=== PATIENT | female | born 1945 | race Caucasian/White ===

== ENCOUNTER 2018-05-08 05:52 | Emergency (ER) | payer OTHER ==
[2018-05-08 06:42] VITALS: BP 142/68; PULSE 76; TEMP 97.5; BMI 27.4
--- NOTE | 2018-05-08 07:15 | PDOC ---
History of Present Illness - General Chief Complaint: Vaginal Bleeding Stated Complaint: Vaginal bleeding Time Seen by Provider: 05/08/18 07:15 - History of Present Illness Initial Comments: 73 year old female with PMH of HTN, HLD, and hypothyroidism presenting with vaginal bleeding since 1 AM. Patient states that she went to the bathroom and felt pain when she urinated then noticed bleeding in the toilet and on the toilet paper. Describes the pain as a 5-7/10 burning sensation when she urinates. She has never had this before. She still has he uterus and ovaries. Denies any fevers, chills, flank pain, chest pain, or other symptoms. 05/08/18 07:30 Past History - Past Medical History Allergies/Adverse Reactions: Allergies Allergy/AdvReac Type Severity Reaction Status Date / Time No Known Allergies Allergy Verified 05/08/18 06:42 Home Medications: Ambulatory Orders Amlodipine Besylate [Norvasc -] 10 mg PO DAILY #7 tablet 09/05/13 Aspirin Coated [Ecotrin -] 81 mg PO DAILY 09/05/13 Labetalol HCl 100 mg PO BID #20 tablet 09/05/13 Levothyroxine [Synthroid -] 100 mcg PO DAILY 09/05/13 Quetiapine Fumarate [Seroquel] 25 mg PO HS 09/05/13 Simvastatin [Zocor] 20 mg PO HS 09/05/13 Cephalexin Monohydrate [Keflex -] 500 mg PO BID 7 Days #14 capsule 05/08/18 Omeprazole 20 mg PO DAILY 05/08/18 COPD: No HTN: Yes Hypercholesterolemia: Yes Thyroid Disease: Yes (hypo) - Suicide/Smoking/Psychosocial Hx Smoking History: Never smoked Have you smoked in the past 12 months: No Number of Cigarettes Smoked Daily: 10 If you are a former smoker, when did you quit?: 1 mth ago Information on smoking cessation initiated: No 'Breaking Loose' booklet given: 03/22/18 Hx Alcohol Use: No Drug/Substance Use Hx: No Substance Use Type: None Review of Systems - Review of Systems Constitutional: No: Chills, Diaphoresis, Fever, Loss of Appetite HEENTM: No: Eye Pain, Blurred Vision, Tearing Respiratory: No: Cough, Shortness of Breath, Stridor, Wheezing Cardiac (ROS): No: Edema, Irregular Heart Rate, Lightheadedness, Palpitations ABD/GI: No: Diarrhea, Nausea, Vomiting : Yes: Frequency, Hematuria, Pain, Urgency. No: Dysuria, Discharge, Flank Pain Musculoskeletal: No: Back Pain, Gout, Joint Pain, Joint Swelling Integumentary: No: Dryness, Erythema, Flushing, Lesions Neurological: No: Headache, Numbness, Paresthesia, Seizure Psychiatric: No: Anxiety, Frequent Crying, Stressors Hematologic/Lymphatic: No: Anemia, Blood Clots, Easy Bleeding *Physical Exam - Vital Signs Last Vital Signs Temp Pulse Resp BP Pulse Ox 97.5 F L 76 18 142/68 100 05/08/18 06:05 05/08/18 06:05 05/08/18 06:05 05/08/18 06:05 05/08/18 06:05 - Physical Exam General Appearance: Yes: Nourished, Appropriately Dressed. No: Apparent Distress HEENT: positive: EOMI, DONOVAN, Normal ENT Inspection, Normal Voice Neck: positive: Trachea midline, Normal Thyroid, Supple. negative: Tender, Rigid Respiratory/Chest: positive: Lungs Clear, Normal Breath Sounds. negative: Chest Tender, Respiratory Distress, Accessory Muscle Use Cardiovascular: positive: Regular Rhythm, Regular Rate Female Pelvic Exam: positive: normal external exam, cervical os closed. negative: lesions, vaginal bleeding, other (bleeding lesion in the ) Gastrointestinal/Abdominal: positive: Normal Bowel Sounds, Flat, Soft. negative : Tender Lymphatic: negative: Adenopathy, Tenderness Musculoskeletal: positive: Normal Inspection. negative: CVA Tenderness Extremity: positive: Normal Capillary Refill, Normal Inspection, Normal Range of Motion, Pelvis Stable. negative: Tender Integumentary: positive: Normal Color, Dry, Warm Neurologic: positive: Fully Oriented, Alert, Normal Mood/Affect, Normal Response , Motor Strength 5/5 Medical Decision Making - Medical Decision Making 73 year old with PMH of HTN, HLD, and hypothyroidism presenting with vaginal bleeding for the past 4 hours that we've determined to be urinary in origin concerning for hemorrhagic cystitis/ UTI with hematuria corroborated on UA with + leuk esterase and WBCs. This could represent a urinary neoplasm, however, but less likely given UA concerning for infection. Patient sent home with 500 BID of Keflex for 7 days and follow up/ return precautions. 05/08/18 08:11 *DC/Admit/Observation/Transfer Diagnosis at time of Disposition: UTI (urinary tract infection) Qualifiers: Urinary tract infection type: site unspecified Hematuria presence: with hematuria Qualified Code(s): N39.0 - Urinary tract infection, site not specified ; R31.9 - Hematuria, unspecified - Discharge Dispostion Disposition: HOME Condition at time of disposition: Improved - Referrals Referrals: Homer Sykes [Primary Care Provider] - - Patient Instructions Printed Discharge Instructions: DI for Urinary Tract Infection (UTI) Additional Instructions: Please stay well hydrated and please use your antibiotics twice a day for the next 7 days. Please follow up with Dr. Martinez this week. We will call you if your urinary cultures grow a bacteria that is not covered by your antibiotics. Please return to the ED if you do not notice small improvement in the next 2-3 days. Also return if you have any new or worsening symptoms. - Post Discharge Activity
[2018-05-08 07:24] LABS: URINE APPEARANCE CLEAR; URINE BILIRUBIN NEGATIVE (<2.0 mg/dL); URINE COLOR RED; URINE GLUCOSE (UA) 1+ (NEGATIVE); URINE KETONE NEGATIVE (NEGATIVE); URINE LEUK ESTERASE 1+ (NEGATIVE); URINE NITRITE NEGATIVE (NEGATIVE); URINE PROTEIN 2+ (NEGATIVE); URINE UROBILINOGEN NEGATIVE mg/dL (0.2-1.0)
[2018-05-08 07:30] LABS: EPI CELLS RARE /HPF (FEW); URINE BACTERIA RARE /hpf (NONE SEEN); URINE MUCUS RARE
--- NOTE | 2018-05-08 08:19 | PDOC ---
Attending Attestation - Resident Resident Name: Anaid Fleming - ED Attending Attestation I have performed the following: I have examined & evaluated the patient, The case was reviewed & discussed with the resident, I agree w/resident's findings & plan - HPI HPI: 05/08/18 08:17 73-year-old female with history of UTIs was in her usual state of normal health until around 4 AM, when she awoke with urinary urgency and noted post urinary discomfort and blood in the urine. Some constipation and pelvic discomfort, no other GI complaints, no fevers or chills or flank pain. Last treated for UTI successfully about 6 months ago with antibiotics. - Physicial Exam PE: 05/08/18 08:18 Afebrile, vital signs normal Well-appearing, ambulating in the emergency department Heart is regular, lungs are clear Abdomen is soft/nondistended. No CVA tenderness, slight suprapubic discomfort to palpation without guarding or rebound. Urine at bedside is light red color without clots - Medical Decision Making 05/08/18 08:18 73-year-old female with likely hemorrhagic cystitis, lower suspicion for any AD[employer] or GI pathology. Vital signs are normal and patient is well-appearing without red flags on history or physical exam. Urinalysis with elevated white blood cells and red blood cells, urine culture and lab Antibiotic course, PCP/urology follow-up. Understands return criteria.
== END 2018-05-08 08:35 | disposition home or self-care (01) ==
LOC: JER 05:52
DX: N39.0 Urinary tract infection, site not specified (principal); N31.9 Neuromuscular dysfunction of bladder, unspecified; I10 Essential (primary) hypertension; E78.5 Hyperlipidemia, unspecified; E78.00 Pure hypercholesterolemia, unspecified; E03.9 Hypothyroidism, unspecified
CPT/HCPCS: 81003; 81015; 87086; 87186; 99282-25

== ENCOUNTER 2018-08-15 16:42 | Emergency (ER) | payer OTHER ==
[2018-08-15 16:55] VITALS: BP 161/69; PULSE 76; TEMP 98.2; BMI 29.2
--- NOTE | 2018-08-15 16:56 | PDOC ---
Rapid Medical Evaluation Medical Evaluation: Allergies Allergy/AdvReac Type Severity Reaction Status Date / Time No Known Allergies Allergy Verified 05/08/18 06:42 I have performed a brief in-person evaluation of this patient. The patient presents with a chief complaint of: Hematuria x today; mentions some pain at urethra site, but denies dysuria, frequency, urgency; only blood thinner patient is on is ASA; was seen for similar complaint 04/2018, found to have UTI, d/bhavin on keflex, but states her PCP changed her medication to something else (does not recall name) Pertinent physical exam findings: In NAD I have ordered the following: Labs The patient will proceed to the ED for further evaluation. 08/15/18 16:53 Discharge Disposition - Referrals Referrals: Homer Sykes [Primary Care Provider] - - Patient Instructions - Post Discharge Activity
[2018-08-15 18:08] LABS: BASO % 0.4 % (0-2.0); EOS % 0.8 % (0-4.5); HEMATOCRIT 37.4 % (32.4-45.2); HEMOGLOBIN 12.7 GM/dL (10.7-15.3); LYMPH % 21.2 % (8-40); MCH 30.4 pg (25.7-33.7); MCHC 34.1 g/dl (32.0-36.0); MEAN CELL VOLUME 89.2 fl (80-96); MEAN PLT VOLUME 10.5 fl (7.5-11.1); MONO % 6.9 % (3.8-10.2); NEUT % 70.7 % (42.8-82.8); PLATELET COUNT 210 K/MM3 (134-434); RBC 4.19 M/mm3 (3.60-5.2); RDW 13.9 % (11.6-15.6); WHITE BLOOD COUNT 9.8 K/mm3 (4.0-10.0)
--- NOTE | 2018-08-15 18:08 | PDOC ---
History of Present Illness - General Chief Complaint: Hematuria Stated Complaint: Hematuria Time Seen by Provider: 08/15/18 16:58 History Source: Patient Exam Limitations: No Limitations Past History - Past Medical History Allergies/Adverse Reactions: Allergies Allergy/AdvReac Type Severity Reaction Status Date / Time No Known Allergies Allergy Verified 05/08/18 06:42 Home Medications: Ambulatory Orders Amlodipine Besylate [Norvasc -] 10 mg PO DAILY #7 tablet 09/05/13 Aspirin Coated [Ecotrin -] 81 mg PO DAILY 09/05/13 Labetalol HCl 100 mg PO BID #20 tablet 09/05/13 Levothyroxine [Synthroid -] 100 mcg PO DAILY 09/05/13 Quetiapine Fumarate [Seroquel] 25 mg PO HS 09/05/13 Simvastatin [Zocor] 20 mg PO HS 09/05/13 Cephalexin Monohydrate [Keflex -] 500 mg PO BID 7 Days #14 capsule 05/08/18 Omeprazole 20 mg PO DAILY 05/08/18 Nitrofurantoin Monohyd/M-Cryst [Macrobid -] 100 mg PO BID 5 Days #10 capsule COPD: No HTN: Yes Hypercholesterolemia: Yes Thyroid Disease: Yes (hypo) - Reproductive History Is Patient Now?: No - Immunization History Immunization Up to Date: No - Suicide/Smoking/Psychosocial Hx Smoking History: Current every day smoker Have you smoked in the past 12 months: No Number of Cigarettes Smoked Daily: 10 If you are a former smoker, when did you quit?: 1 mth ago Information on smoking cessation initiated: No 'Breaking Loose' booklet given: 03/22/18 Hx Alcohol Use: No Drug/Substance Use Hx: No Substance Use Type: None *Physical Exam - Vital Signs Last Vital Signs Temp Pulse Resp BP Pulse Ox 98.2 F 76 16 161/69 99 08/15/18 16:53 08/15/18 16:53 08/15/18 16:53 08/15/18 16:53 08/15/18 16:53 Moderate Sedation - Procedure Monitoring Vital Signs: Procedure Monitoring Vital Signs Temperature 98.2 F 08/15/18 16:53 Pulse Rate 76 08/15/18 16:53 Respiratory Rate 16 08/15/18 16:53 Blood Pressure 161/69 08/15/18 16:53 O2 Sat by Pulse Oximetry (%) 99 08/15/18 16:53 ED Treatment Course - LABORATORY CBC & Chemistry Diagram: 08/15/18 17:31 08/15/18 17:31 Medical Decision Making - Medical Decision Making Pt was seen at bedside, also will be seen by attending Dr. Shipman. Pt presenting with PE showed [] Considering [vs vs] Ordered work-up including [labs] and [imaging]. Provided [interventions/meds] for improvement of [pain/symptom control]. Will continue to reassess pt and monitor for symptomatic improvement. 08/15/18 19:06 Repeat BP 140/86. Pt can be discharged to home with follow-up. Pt advised to follow-up with PCP in 1-2 days. Strict return precautions provided with pt understanding. 08/15/18 19:06 *DC/Admit/Observation/Transfer Diagnosis at time of Disposition: Urinary tract infection Qualifiers: Urinary tract infection type: site unspecified Hematuria presence: with hematuria Qualified Code(s): N39.0 - Urinary tract infection, site not specified - Discharge Dispostion Disposition: HOME Condition at time of disposition: Good Decision to Admit order: No - Prescriptions Prescriptions: Nitrofurantoin Monohyd/M-Cryst [Macrobid -] 100 mg PO BID 5 Days #10 capsule - Referrals Referrals: Homer Sykes [Primary Care Provider] - Bogdan Cuello MD [Staff Physician] - - Patient Instructions Printed Discharge Instructions: DI for Urinary Tract Infection (UTI) Additional Instructions: You were seen in the ER today for blood in your urine. The results of your labs today showed a urinary tract infection with blood in your urine. Please follow- up with your primary care doctor and the urologist (Dr. Cuello) within 1-2 days to discuss your visit and make sure your symptoms have improved. Please return to the ER if you have any worsening pain, worsening blood in the urine with clots, vaginal or rectal bleeding, development of fevers or chills, loss of consciousness, inability to tolerate food or fluids, or any other concerns. I have sent an antibiotic to your pharmacy (Macrobid 500 mg, twice per day for 5 days). Please take your first dose tonight. - Post Discharge Activity
[2018-08-15 18:09] LABS: ANION GAP 7 MMOL/L (8-16); BLOOD UREA NITROGEN 15 mg/dL (7-18); CHLORIDE 104 mmol/L (98-107); CO2 28 mmol/L (21-32); CREATININE 1.1 mg/dL (0.55-1.3); GLUCOSE,RANDOM 78 mg/dL (74-106); POTASSIUM 4.2 mmol/L (3.5-5.1); SODIUM 138 mmol/L (136-145)
[2018-08-15 18:14] LABS: URINE APPEARANCE CLEAR; URINE BILIRUBIN NEGATIVE (<2.0 mg/dL); URINE COLOR STRAW; URINE GLUCOSE (UA) NEGATIVE (NEGATIVE); URINE KETONE NEGATIVE (NEGATIVE); URINE LEUK ESTERASE 2+ (NEGATIVE); URINE NITRITE NEGATIVE (NEGATIVE); URINE PROTEIN NEGATIVE (NEGATIVE); URINE UROBILINOGEN NEGATIVE mg/dL (0.2-1.0)
--- NOTE | 2018-08-15 18:45 | PDOC ---
Attending Attestation - Resident Resident Name: Jill Spangler - ED Attending Attestation I have performed the following: I have examined & evaluated the patient, The case was reviewed & discussed with the resident, I agree w/resident's findings & plan, Exceptions are as noted - HPI HPI: 08/15/18 18:43 The patient is a 73 year old female with a significant PMH of UTIs, HTN, hypothyroidism, and HLD who presents to the emergency department with blood in the urine since this morning. Patient noticed pink colored urine today and some blood when wiping this morning. Denies passing any clots. Patient has had multiple UTIs in the past. Patient last found to have a UTI on 05/17 after she presented with similar symptoms and was discharged home on keflex. Patient also admits to mild dysuria today. Patient denies flank pain, fever, chills, nausea, vomit, diarrhea and constipation. Denies urgency or frequency. Allergies: NKA Past surgical history: None reported. Social history: No reported alcohol, drug, or cigarette use. PCP: Dr. Sykes - Physicial Exam PE: 08/15/18 18:43 GENERAL: Awake, alert, and fully oriented, in no acute distress. HEAD: No signs of trauma EYES: PERRLA, EOMI, sclera anicteric, conjunctiva clear ENT: Auricles normal inspection, hearing grossly normal, nares patent, oropharynx clear without exudates. Moist mucosa NECK: Nontender, no stepoffs, Normal ROM, supple, no lymphadenopathy, JVD, or masses LUNGS: Breath sounds equal, clear to auscultation bilaterally. No wheezes, and no crackles HEART: Regular rate and rhythm, normal S1 and S2, no murmurs, rubs or gallops ABDOMEN: Soft, nontender, normoactive bowel sounds. No guarding, no rebound. No masses EXTREMITIES: Normal range of motion, no edema. No clubbing or cyanosis. No cords, erythema, or tenderness NEUROLOGICAL: Cranial nerves II through XII intact. 5/5 strength and sensation in all extremities, Normal speech, normal gait, normal cerebellar function SKIN: Warm, Dry, normal turgor, no rashes or lesions noted. BACK: no CVAT - Medical Decision Making 08/15/18 18:44 73 F with mild hematuria. Suspect cystitis. Pt with no CVAT to suggest pyelo. No s/s systemic illness. - Labs, UA, UCx 08/15/18 18:45 UA consistent with UTI Labs otherwise normal WIll DC with Urology f/u Pt is well appearing, with normal vitals. Clinically stable for DC at this time. I discussed the physical exam findings, ancillary test results and final diagnoses with the patient. I answered all of the patient's questions. The patient was satisfied with the care received and felt comfortable with the discharge plan and treatment plan. The patient agrees to follow up with the primary care physician within 24-72 hours.
== END 2018-08-15 19:02 | disposition home or self-care (01) ==
LOC: JER 16:42
DX: N39.0 Urinary tract infection, site not specified (principal); F17.210 Nicotine dependence, cigarettes, uncomplicated; E03.9 Hypothyroidism, unspecified; I10 Essential (primary) hypertension; E78.00 Pure hypercholesterolemia, unspecified
CPT/HCPCS: 36415; 80048; 81003; 81015; 85025; 87086; 99282-25

== ENCOUNTER 2023-01-22 10:02 | Emergency (ER) | payer OTHER ==
[2023-01-22 10:12] VITALS: BP 133/60; PULSE 66; RESP 18; TEMP 98.3; BMI 25.9
== END 2023-01-22 12:21 | disposition home or self-care (01) ==
LOC: JER 10:02
DX: K64.9 Unspecified hemorrhoids (principal)
CPT/HCPCS: 99283-25

== ENCOUNTER 2024-06-20 12:36 | Emergency (ER) | payer OTHER ==
[2024-06-20 12:55] VITALS: BMI 27.1
[2024-06-20] MEDS ORDERED: PANTOPRAZOLE 40 MG TABLET PO ONE (13:15)
[2024-06-20] MEDS ORDERED: MAG HYDROX/AL HYDROX/SIMETH 30 ML UNIT-DOSE CUP ONE (13:16)
[2024-06-20] MEDS: MAG HYDROX/AL HYDROX/SIMETH 30 ML UNIT-DOSE CUP PO ONE (13:50)
[2024-06-20] MEDS: PANTOPRAZOLE 40 MG TABLET PO ONE (13:50)
[2024-06-20 14:24] LABS: BASO % 0.6 % (0-2.0); EOS % 2.2 % (0-4.5); HEMATOCRIT 33.6 % (32.4-45.2); HEMOGLOBIN 10.8 GM/dL (10.7-15.3); LYMPH % 22.4 % (8-40); MCH 26.7 pg (25.7-33.7); MCHC 32.2 g/dl (32.0-36.0); MEAN CELL VOLUME 82.7 fl (80-96); MEAN PLT VOLUME 10.3 fl (7.5-11.1); MONO % 8.1 % (3.8-10.2); NEUT % 66.7 % (42.8-82.8); PLATELET COUNT 155 10^3/uL (134-434); RBC 4.07 M/mm3 (3.60-5.2); WHITE BLOOD COUNT 7.1 K/mm3 (4.0-10.0)
[2024-06-20 14:39] LABS: BLOOD UREA NITROGEN 19.9 mg/dL (7-18); CALCIUM 10.1 mg/dL (8.5-10.1); MAGNESIUM 2.3 mg/dL (1.8-2.4)
[2024-06-20 14:42] LABS: CREATININE 1.4 mg/dL (0.55-1.3)
[2024-06-20 14:44] LABS: BILIRUBIN,TOTAL 0.7 mg/dL (0.2-1); TOT PROT 7.8 g/dl (6.4-8.2)
[2024-06-20 15:55] LABS: POTASSIUM 4.1 mmol/L (3.5-5.1)
[2024-06-20 15:56] LABS: CALCIUM 9.9 mg/dL (8.5-10.1)
[2024-06-20 15:57] LABS: BLOOD UREA NITROGEN 20.1 mg/dL (7-18)
[2024-06-20 16:00] LABS: CREATININE 1.3 mg/dL (0.55-1.3)
[2024-06-20 16:28] LABS: HIV INTERPRETATION NEGATIVE (NEGATIVE)
[2024-06-20 17:38] VITALS: BP 150/61; PULSE 65; RESP 20; TEMP 98.7
== END 2024-06-20 17:38 | disposition home or self-care (01) ==
LOC: JER 12:36
DX: K44.9 Diaphragmatic hernia without obstruction or gangrene (principal); R10.13 Epigastric pain
CPT/HCPCS: 36415; 71045-TC-FY; 71250-TC; 74176-TC; 80048; 80053; 83690; 83735; 84484; 85025; 86803; 87389; 93005; 93010; 99285-25